=== PATIENT | male | born 1970 ===

== ENCOUNTER 2017-12-17 23:56 | Emergency (ER) | payer SELFPAY ==
[2017-12-18 00:03] VITALS: O2SAT 100
--- NOTE | 2017-12-18 01:51 | ED PDOC ---
HPI: Wound Care - HPI Time Seen by Provider: 12/18/17 00:43 Chief Complaint (Nursing): Abnormal Skin Integrity Chief Complaint (Provider): right wrist laceration History Per: Patient, Family History Of Present Illness: 47 y/o male presents for evaluation of laceration to right wrist sustained at 18 :00 last night. Patient states he was cutting a can open and the top cut his wrist. Denies numbness/weakness right upper extremity, limitation of movement. Tetanus up to date. Past Medical History Vital Signs: Last Vital Signs Temp 98.9 F 12/18/17 00:01 Pulse 80 12/18/17 00:01 Resp 18 12/18/17 00:01 BP 183/82 H 12/18/17 00:01 Pulse Ox 100 12/18/17 00:01 - Medical History PMH: Diabetes, HTN - Surgical History Surgical History: No Surg Hx - Family History Family History: States: No Known Family Hx - Living Arrangements Living Arrangements: With Family - Home Medications Home Medications: Ambulatory Orders Medication Instructions Recorded Ciprofloxacin HCl [Cipro] 1 tab PO BID #14 tab 08/16/14 Phenazopyridine HCl [Pyridium] 1 tab PO BID #6 tab 08/16/14 Diphenhydramine Hydrochlorid 50 mg PO Q6 #20 cap 04/04/15 [Benadryl] Ibuprofen [Motrin] 600 mg PO Q8 #20 tab 04/04/15 Mupirocin 2% Cream [Bactroban 30 applic EXT BID #1 tube 04/04/15 Cream] Levofloxacin [Levaquin] 500 mg PO BID #14 tablet 06/02/16 - Allergies Allergies/Adverse Reactions: Allergies Allergy/AdvReac Type Severity Reaction Status Date / Time No Known Allergies Allergy Verified 12/18/17 00:01 Review of Systems ROS Statement: Except As Marked, All Systems Reviewed And Found Negative Musculoskeletal: Positive for: Hand Pain (right wrist laceration) Physical Exam - Reviewed Nursing Documentation Reviewed: Yes Vital Signs Reviewed: Yes - Physical Exam Appears: Positive for: Well, Non-toxic, No Acute Distress Pulses-Radial (L): 2+ Pulses-Radial (R): 2+ Extremity: Positive for: Normal ROM, Capillary Refill (<2 sec b/l UE), Other ( 3cm superficial laceration volar right wrist. No tendon exposure. Distal NV/ motor intact) Neurologic/Psych: Positive for: Alert, Oriented. Negative for: Motor/Sensory Deficits - ECG O2 Sat by Pulse Oximetry: 100 Procedure: Wound Repair - Time Performed Time Performed: 02:00 - Time Out Time Out: Side verified, Site verified, Patient ID confirmed, Sterile procedures obs. - Consent Obtained Consent obtained: Verbal - Performed by Performed by: Mid-level Provider - Location Location:: Right, Volar, Wrist Shape:: Linear Dimensions Length cm: 3cm Dimensions width cm: 0.5cm Depth:: Subcutaneous fascia - Anesthetic Technique Anesthetic Technique: Topical Local/Regional Anesthetic:: Lidocaine 1% w/epi - Debris Debris:: None - Irrigated Irrigated with ml of normal saline: 250mL - Complexity Complexity:: Simple (one layer) - Wound repair method Sutures:: # (6), Size (4'0), Type (prolene), Technique (interrupted) - Muscle repiar layer closed with Muscle repair layer closed with:: Dressing applied, Tetanus up to date Medical Decision Making Medical Decision Making: Patient/family educated on wound care, suture removal 7-10 days Return precautions given Disposition - Clinical Impression Clinical Impression: Laceration of wrist - Patient ED Disposition Is Patient to be Admitted: No Counseled Patient/Family Regarding: Studies Performed, Diagnosis, Need For Followup - Disposition Disposition: Routine/Home Disposition Time: 02:39 Condition: IMPROVED Additional Instructions: Suture removal 7-10 days Clean wound daily, apply neosporin Return to ED for redness, swelling, drainage from site, or other concerning symptoms Instructions: Laceration Repair Print Language: FRISIAN
[2017-12-18 02:53] VITALS: BP 180/82; PULSE 82; RESP 19; TEMP 98.6
== END 2017-12-18 03:06 | disposition home or self-care (01) ==
LOC: H.ER 23:56
DX: S61.511A Laceration without foreign body of right wrist, initial encounter (principal); W26.0XXA Contact with knife, initial encounter; Y92.89 Other specified places as the place of occurrence of the external cause; E11.9 Type 2 diabetes mellitus without complications; I10 Essential (primary) hypertension